=== PATIENT | female | born 1970 | race Caucasian/White ===

== ENCOUNTER 2023-09-30 16:36 | Emergency (ER) | payer OTHER, SELFPAY ==
--- NOTE | ~2023-09-30 | XR_ITS ---
EXAM: XR hand LT min 3V DATE: 09/30/2023 19:30 HISTORY: post reduction . COMPARISON: Same date at 6:06 PM. FINDINGS/IMPRESSION: Successful interval reduction of the left fifth PIP joint. Distracted left fifth PIP joint volar plate avulsion fracture. Reviewed, dictated and finalized at location K. RY CARE DIRECTOR
--- NOTE | ~2023-09-30 | XR_ITS ---
EXAM: XR hand LT min 3V DATE: 09/30/2023 18:11 HISTORY: fall, deformity 5th digit . COMPARISON: None available. FINDINGS: Overlapping fingers and the lateral view. Normal mineralization. Dislocation of the left f ifth PIP joint, with posterior displacement of one bone width and mild medial subluxation. Possible o ssific fragment anterior to the distal aspect of the left fifth proximal phalange, mostly obscured by summation artifact. No lytic or blastic lesion. Joint spaces are maintained. No erosion or periostea l change. Soft tissues within normal limits. IMPRESSION: Posterior dislocation of the left fifth PIP joint with mild lateral subluxation. Possible adjacent small ossific fragment may represent an avulsion fracture but is mostly obscured by summati on artifact. Reviewed, dictated and finalized at location K. [employer]ATION TECHNICIAN IMPRESSION: Posterior dislocation of the left fifth PIP joint with mild lateral subluxation. Possible adjacent small ossific fragment may represent an avulsio n fracture but is mostly obscured by summation artifact.
[2023-09-30 16:50] VITALS: BP 130/106; PULSE 115; RESP 19; TEMP 37.1; O2SAT 99
--- NOTE | 2023-09-30 19:12 | ED.GENADULT ---
HPI - General Adult General Chief complaint: Extremity Injury, Upper Stated complaint: laceration Time Seen by Provider: 09/30/23 18:43 Source: patient Mode of arrival: ambulatory Limitations: no limitations History of Present Illness HPI narrative: This is a 53-year-old female who presents to the ED with chief complaint of a fall today. She tripped and fell to bilateral hands knees face. Reports abrasions to the area as well as deformity to the left pinky. Denies any numbness or weakness. Denies LOC. Denies any blood thinners. Denies any further complaints were site of pain. She was able to ambulate without assistance. Related Data Allergies Allergy/AdvReac Type Severity Reaction Status Date / Time Penicillins Allergy Unknown Verified 09/30/23 19:26 Sulfa (Sulfonamide Allergy Unknown Verified 09/30/23 19:26 Antibiotics) Review of Systems Review of Systems: All systems as dictated in HPI Exam Narrative: GENERAL: Well-appearing, well-nourished, and in no acute distress. HEAD: Normocephalic, atraumatic. EYES: PERRLA and EOMI. ENT: Nares clear, no rhinorrhea or epistaxis. Mucous membranes moist. Oropharynx without tonsillar hypertrophy exudate or other lesions. NECK: Supple. No adenopathy or masses. CHEST: No respiratory distress. Clear to auscultation. No wheezes rales or rhonchi HEART: Regular rate and rhythm. No murmur heard. Normal peripheral pulses. ABDOMEN: Soft, nontender, nondistended, normal active bowel sounds. MSK: Left hand: Deformity noted to the left pinky PIP. Moderate tenderness. Decreased range of motion, unable to make a fist. Neurovascularly intact distally. Right hand: Benign SKIN: Warm, dry, no rash. Mild abrasions face, hands. NEURO: Alert and oriented x3. No focal deficits. PSYCH: Normal mood and affect. Course Vital Signs Vital signs: Vital Signs Temperature 98.7 F 09/30/23 16:50 Pulse Rate 115 H 09/30/23 16:50 Respiratory Rate 19 09/30/23 16:50 Blood Pressure 130/106 H 09/30/23 16:50 Pulse Oximetry 99 09/30/23 16:50 Oxygen Delivery Room Air 09/30/23 16:50 Temperature 98.1 F 09/30/23 20:01 Pulse Rate 54 L 09/30/23 20:01 Respiratory Rate 14 09/30/23 20:01 Blood Pressure 130/106 H 09/30/23 16:50 Pulse Oximetry 100 09/30/23 20:01 Oxygen Delivery Room Air 09/30/23 16:50 Procedures Orthopedic Joint Reduction Joint #1: Orthopedic Joint Reduction Date: 09/30/23 Orthopedic Joint Reduction Time: 19:16 Time Out Performed: No Side: left Joint Reduction Location: finger (pinky) Analgesia: none Pre-Procedure Neuro Vascular Exam: normal Local Anesthesia: none Technique used: traction/counter-traction and direct manipulation Post-reduction neuro exam: intact Post-reduction vascular: intact Post Reduction X-Ray Obtained: Yes Medical Decision Making MDM Narrative Medical decision making narrative: This is a 53-year-old female who presents to the ED for chief complaint of a fall and injury to the left pinky finger. Vitals show initial tachycardia likely due pain. He was stable. X-ray shows Posterior dislocation of the left fifth PIP joint with mild lateral subluxation. Possible adjacent small ossific fragment may represent an avulsion fracture but is mostly obscured by summation artifact.. Was able to reduce the pinky finger without complication. Countertraction used. Neurovascularly intact before and after procedure. Post reduction films show successful interval reduction of the left 5th PIP joint. Destructive left 5th PIP joint volar plate avulsion fracture. The finger was splinted and and referral was given. Pt will be discharged in stable condition. Return precautions given and supportive measures discussed. Pt is understanding and agreeable with plan for discharge and follow-up with PCP. Vital Signs Vital Signs: Vital Signs Temperature 98
[2023-09-30] MEDS: HYDROcodone/acetaminophen (*CRX) 5-325 MG TABLET 1 TAB PO (19:24)
[2023-09-30 20:01] VITALS: PULSE 54; RESP 14; TEMP 36.7; O2SAT 100
== END 2023-09-30 20:24 | disposition home or self-care (01) ==
PROVIDERS: Emergency Provider Physician Assistant
DX: S63.287A Dislocation of proximal interphalangeal joint of left little finger, initial encounter (principal); W01.0XXA Fall on same level from slipping, tripping and stumbling without subsequent striking against object, initial encounter
CPT/HCPCS: 26770; 73130; 99285; A9270